=== PATIENT | female | born 1965 | race Caucasian/White ===

== ENCOUNTER 2016-04-19 10:55 | Emergency (ER) | payer OTHER ==
--- NOTE | 2016-04-19 11:49 | REP ---
Duplex extremity venous ultrasound: Left lower extremity. History: Left lower extremity pain. Findings: The deep veins are anechoic and fully compressible from the groin to the popliteal fossa in the left lower extremity. Color flow imaging is homogeneous. Spectral Doppler interrogation demonstrates intact respiratory variation in flow and normal manual augmentation of flow. There is no evidence of deep vein thrombosis. Impression: Negative left lower extremity duplex venous ultrasound. No evidence of deep vein thrombosis. Signed by Bernard Fraser MD 04/19/2016 11:40 A
[2016-04-19 11:59] LABS: BASO % 0.3 % (0.0-1.0); EOS # 0.2 K/mm3 (0.0-0.50); EOS % 2.9 % (0.0-3.0); LARGE UNSTAINED CELL # 0.1 K/mm3 (0.0-0.4); LARGE UNSTAINED CELL % 1.7 % (0.0-4.0); LYMPH # 2.2 K/mm3 (1.5-4.5); LYMPH % 30.5 % (24.0-44.0); MEAN CORPUSCULAR HEMOGLOBIN 30.7 pg (27.0-33.0); MONO # 0.5 K/mm3 (0.0-0.8); MONO % 6.7 % (0.0-5.0); NEUTROPHILS # 3.9 K/mm3 (1.8-7.7); NEUTROPHILS % 57.9 % (36.0-66.0); PLATELET COUNT, AUTOMATED 253 k/mm3 (150-450); RED CELL DISTRIBUTION WIDTH 13.1 % (11.5-14.5); WHITE BLOOD COUNT 6.7 K/mm3 (4.0-10.0)
[2016-04-19 12:17] LABS: ANION GAP 7 MEQ/L (8-16); BLOOD UREA NITROGEN 17 MG/DL (7-18); CALCIUM LEVEL 9.2 MG/DL (8.5-10.1); CARBON DIOXIDE LEVEL 28 MEQ/L (21-32); CHLORIDE LEVEL 108 MEQ/L (98-107); CREATININE FOR GFR 0.77 MG/DL (0.55-1.02); GLOMERULAR FILTRATION RATE > 60.0 (>51); GLUCOSE, FASTING 98 MG/DL (70-105); POTASSIUM SERUM 4.1 MEQ/L (3.5-5.1); SODIUM LEVEL 143 MEQ/L (136-145)
[2016-04-19 12:34] LABS: FREE T4 0.9 NG/DL (0.76-1.46)
--- NOTE | 2016-04-19 12:36 | EDDOCDS ---
Physician Documentation [facility] Name: Matty Graves Age: 50 yrs Sex: Female : 1965 Arrival Date: 04/19/2016 Time: 10:55 Bed PR Private MD: Gustabo Kingsley Disposition: 04/19/16 12:10 Discharged to Home/Self Care. Impression: Pain in left leg, Palpitations. - Condition is Stable. - Medication Reconciliation, Local Pharmacy Hours form. - Follow up: Private Physician; When: 2 - 3 days; Reason: Recheck today's complaints. Follow up: Emergency Department; When: As soon as possible; Reason: Worsening of conditions. - Problem is new. - Symptoms are unchanged. Historical: - Allergies: no known allergies; - Home Meds: 1. multivitamin Oral tab 1 tablet daily - PMHx: none; - PSHx: Carpal Tunnel Repair- Right; Cholecystectomy; Colonoscopy; - Social history: Smoking status: Patient states was never smoker of tobacco. No barriers to communication noted, The patient speaks fluent Kazakh, Speaks appropriately for age. - Family history: Not pertinent. - : The pt / caregiver states he / she is not on anticoagulants. Home medication list is obtained from the patient. - Exposure Risk Screening:: None identified. ABSTRACTER: 04/19 11:00 LMP N/A - Post-menopause srm Vital Signs: 10:56 BP 138 / 76; Pulse 71; Resp 20; Temp 98.9; Pulse Ox 98% ; Weight 91.63 kg / 202.01 lbs; jlf Height 5 ft. 3 in. (160.02 cm); Pain 0/10; 10:56 Body Mass Index 35.78 (91.63 kg, 160.02 cm) jlf MDM: 11:09 US Lower Extremity R/O DVT Ordered. EDMS 11:40 BMP Ordered. EDMS 11:40 CBC with Diff Ordered. EDMS 11:40 Financial registration complete. lg 11:46 ECG WITH READING ER PHYS+CARDIAG ordered. EDMS 11:56 [facility] Payment Agreement was scanned into [employer] and attached to record. lg 12:08 US Lower Extremity R/O DVT Reviewed. jk8 12:09 CBC with Diff Reviewed. jk8 12:12 TSH with Free T4 Ordered. EDMS 12:24 BMP Reviewed. jk8 Signatures: Dispatcher [employer] EDMS Joann Kirkpatrick, RN RN [facility] Norma Mahajan, John Reg lg Anabela MarinelliRN RN kr3 Christophe Garibay PA-C PA-C jk8 The chart was reviewed and I authenticate all verbal orders and agree with the evaluation and treatment provided.Corrections: (The following items were deleted from the chart) 12:09 12:08 No acute disease. jk8 jk8 12:12 11:36 CT ANGIO CHEST+CT ordered. EDMS EDMS Attachments: 11:56 [facility] Payment Agreement lg MTDD
--- NOTE | 2016-04-19 12:36 | EDDOCDS ---
Nurse's Notes [facility] Name: Matty Graves Age: 50 yrs Sex: Female : 1965 Arrival Date: 04/19/2016 Time: 10:55 Bed PR Private MD: Gustabo Kingsley Diagnosis: Pain in left leg;Palpitations Presentation: 04/19 10:58 Presenting complaint: Patient states: left calf pain for a month. felt flutters in her [facility] chest this am. symptoms lasted a couple of seconds. Adult Sepsis Screening: The patient does not have new or worsening altered mentation. Patient's respiratory rate is less than 22. Systolic blood pressure is greater than 100. Patient has a qSOFA score of 0- Negative Sepsis Screen. Suicide/Homicide risk assessment- the patient denies having any suicidal and/or homicidal ideations and does not present with any other emotional, behavioral or mental health complaints. Status: Patient is not a guest services officer or dependent. Transition of care: patient was not received from another setting of care. 10:58 Method Of Arrival: Walkin/Carried/Asstd [facility] 10:58 Acuity: ROLANDO Level 3 [facility] Triage Assessment: 11:00 General: Appears in no apparent distress, Behavior is appropriate for age, cooperative. [facility] Pain: Pain currently is 3 out of 10 on a pain scale. Quality of pain is described as aching. 11:00 Pt Declines HIV testing. [facility] PRESIDENT: 11:00 LMP N/A - Post-menopause srm Historical: - Allergies: no known allergies; - Home Meds: 1. multivitamin Oral tab 1 tablet daily - PMHx: none; - PSHx: Carpal Tunnel Repair- Right; Cholecystectomy; Colonoscopy; - Social history: Smoking status: Patient states was never smoker of tobacco. No barriers to communication noted, The patient speaks fluent Algerian, Speaks appropriately for age. - Family history: Not pertinent. - : The pt / caregiver states he / she is not on anticoagulants. Home medication list is obtained from the patient. - Exposure Risk Screening:: None identified. Screenin:34 Screening information is obtained from the patient. Fall risk: No risks identified. kr3 Assistance ADL's: requires no assistance with activities of daily living. Abuse/DV Screen: The patient / caregiver reports he/she is: not in a situation that causes fear, pain or injury. Nutritional screening: No deficits noted. Advance Directives: Currently, there is no health care proxy. home support is adequate. Assessment: 12:35 Reassessment: Patient appears in no apparent distress at this time. Pain: Denies pain. kr3 Neurological: Level of Consciousness is awake, alert. Respiratory: Respiratory effort is even, unlabored. Derm: Skin is normal. Vital Signs: 10:56 BP 138 / 76; Pulse 71; Resp 20; Temp 98.9; Pulse Ox 98% ; Weight 91.63 kg; Height 5 ft. jlf 3 in. (160.02 cm); Pain 0/10; 10:56 Body Mass Index 35.78 (91.63 kg, 160.02 cm) [facility] Vitals: 10:56 Log In Time: April 19, 2016 at 10:55. [facility] ED Course: 10:56 Patient visited by Isela Armando PCA. jlf 10:56 Gustabo Kingsley is Private Physician. jlf 10:56 Patient moved to Waiting jl 10:57 Patient visited by Isela Armando PCA. jlf 10:57 Patient moved to Pre RCE jlf 10:59 Triage Initiated srm 11:17 Patient moved to Ultrasound am17 11:27 Patient moved to Triage 1 jf3 11:33 Christophe Garibay PA-C is PHCP. jk8 11:33 Monse Crespo MD is Attending Physician. jk8 11:33 Patient visited by Christophe Garibay PA-C. jk8 11:50 Patient moved to PR2 / 26 kr3 11:50 CBC with Diff Sent. kr3 11:50 BMP Sent. kr3 11:56 [facility] Payment Agreement was scanned into [employer] and attached to record. lg 11:58 Patient visited by Monse Baker. sew 11:58 EKG done. (by ED staff). Reviewed by Christophe Garibay PA-C. sew 12:07 US Lower Extremity R/O DVT Returned. EDMS 12:34 The patient / caregiver is instructed regarding the plan of care and ED course. Patient kr3 has correct armband on for positive identification. 12:35 No IV's were initiated during this patient's visit. No procedures done that require kr3 assistance. Order Results: Lab Order: BMP; SPEC'M 04/19/16 11:49 Test: GLUCOSE, FASTING; Value: 98; Range: 70-105; Units: MG/DL; Status: F Test: BLOOD UREA NITROGEN; Value: 17; Range: 7-18; Units: MG/DL; Status: F Test: CREATININE FOR GFR; Value: 0.77; Range: 0.55-1.02; Units: MG/DL; Status: F Test: GLOMERULAR FILTRATION RATE; Value: > 60.0; Range: >51; Status: F Test: SODIUM LEVEL; Value: 143; Range: 136-145; Units: MEQ/L; Status: F Test: POTASSIUM SERUM; Value: 4.1; Range: 3.5-5.1; Units: MEQ/L; Status: F Test: CHLORIDE LEVEL; Value: 108; Range: 98-107; Abnormal: Above high normal; Units: MEQ/L; Status: F Test: CARBON DIOXIDE LEVEL; Value: 28; Range: 21-32; Units: MEQ/L; Status: F Test: ANION GAP; Value: 7; Range: 8-16; Abnormal: Below low normal; Units: MEQ/L; Status: F Test: CALCIUM LEVEL; Value: 9.2; Range: 8.5-10.1; Units: MG/DL; Status: F Test Note: ; Units are mL/min/1.73 m2 Chronic Kidney Disease Staging per NKF: Stage I & II GFR >=60 Normal to Mildly Decreased Stage III GFR 30-59 Moderately Decreased Stage IV GFR 15-29 Severely Decreased Stage V GFR <15 Very Little GFR Left ESRD GFR <15 on REGISTERED DIET TECHNICIAN Lab Order: CBC with Diff; SPEC'M 04/19/16 11:49 Test: WHITE BLOOD COUNT; Value: 6.7; Range: 4.0-10.0; Units: K/mm3; Status: F Test: RED BLOOD COUNT; Value: 4.32; Range: 4.00-5.40; Units: M/mm3; Status: F Test: HEMOGLOBIN; Value: 13.3; Range: 12.0-16.0; Units: g/dl; Status: F Test: HEMATOCRIT; Value: 40.2; Range: 36.0-47.0; Units: %; Status: F Test: MEAN CORPUSCULAR VOLUME; Value: 93.0; Range: 80.0-96.0; Units: fl; Status: F Test: MEAN CORPUSCULAR HEMOGLOBIN; Value: 30.7; Range: 27.0-33.0; Units: pg; Status: F Test: MEAN CORPUSCULAR HGB CONC; Value: 33.0; Range: 32.0-36.5; Units: g/dl; Status: F Test: RED CELL DISTRIBUTION WIDTH; Value: 13.1; Range: 11.5-14.5; Units: %; Status: F Test: PLATELET COUNT, AUTOMATED; Value: 253; Range: 150-450; Units: k/mm3; Status: F Test: NEUTROPHILS %; Value: 57.9; Range: 36.0-66.0; Units: %; Status: F Test: LYMPH %; Value: 30.5; Range: 24.0-44.0; Units: %; Status: F Test: MONO %; Value: 6.7; Range: 0.0-5.0; Abnormal: Above high normal; Units: %; Status: F Test: EOS %; Value: 2.9; Range: 0.0-3.0; Units: %; Status: F Test: BASO %; Value: 0.3; Range: 0.0-1.0; Units: %; Status: F Test: LARGE UNSTAINED CELL %; Value: 1.7; Range: 0.0-4.0; Units: %; Status: F Test: NEUTROPHILS #; Value: 3.9; Range: 1.8-7.7; Units: K/mm3; Status: F Test: LYMPH #; Value: 2.2; Range: 1.5-4.5; Units: K/mm3; Status: F Test: MONO #; Value: 0.5; Range: 0.0-0.8; Units: K/mm3; Status: F Test: EOS #; Value: 0.2; Range: 0.0-0.50; Units: K/mm3; Status: F Test: BASO #; Value: 0.0; Range: 0.0-0.2; Units: K/mm3; Status: F Test: LARGE UNSTAINED CELL #; Value: 0.1; Range: 0.0-0.4; Units: K/mm3; Status: F Radiology Order: US Lower Extremity R/O DVT Test: US Lower Extremity R/O DVT REASON FOR EXAMINATION: pain; Duplex extremity venous ultrasound: Left lower extremity.; ; History: Left lower extremity pain.; ; Findings: The deep veins are anechoic and fully compressible from the groin to; the popliteal fossa in the left lower extremity. Color flow imaging is; homogeneous. Spectral Doppler interrogation demonstrates intact respiratory; variation in flow and normal manual augmentation of flow. There is no evidence; of deep vein thrombosis.; ; Impression:; ; Negative left lower extremity duplex venous ultrasound. No evidence of deep vein; thrombosis.; ; ; Signed by; Bernard Fraser MD 04/19/2016 11:40 A; Outcome: 12:10 Discharge ordered by Provider. [email or web address] 12:35 Discharge Assessment: patient administered narcotics - no. The following High Risk kr3 Discharge criteria are identified: None. Discharged to home ambulatory. Condition: stable. Discharge instructions given to patient, Instructed on discharge instructions, follow up and referral plans. Demonstrated understanding of instructions, Pt was receptive of discharge instructions/ teaching. Ultrasound Study completed. Property sent home with patient. 12:36 Patient left the ED. kr3 Signatures: Dispatcher [employer] EDMS Joann Kirkpatrick, RN RN Norma Forbes, Anabela Merrill lg,RN RN kr3 Monse Baker Jordain, STEVAN PROFESSOR OF SPORT MANAGEMENT Leslie Juan am17 Christophe Garibay, PA-Benjamin PAGueroC jk8 Hussein Ohara,RN RN jf3 MTDD
--- NOTE | 2016-04-20 20:01 | ECGEPIP ---
Stationary ECG Study [facility] - ED Test Date: 2016-04-19 Pat Name: NICHOL SAWYER Department: Room: - Gender: F Director [facility]: [facility] : 1965 Requested By: WILLOW Suero PA-C Order Number: [id number] Reading MD: Monse Crespo Measurements Intervals Tye Rate: 66 P: 66 NE: 142 QRS: 72 QRSD: 94 T: 39 QT: 409 QTc: 428 Interpretive Statements SINUS RHYTHM NSTTW ABNORMALITY VS ARTIFACT NO PRIOR FOR COMPARISON Electronically Signed On 04-20-2016 20:00:54 EST by Monse Crespo
--- NOTE | 2016-04-21 13:36 | EDDOCDS ---
Physician Documentation [facility] Name: Matty Graves Age: 50 yrs Sex: Female : 1965 Arrival Date: 04/19/2016 Time: 10:55 Bed PR Private MD: Gustabo Kingsley Disposition: 04/19/16 12:10 Discharged to Home/Self Care. Impression: Pain in left leg, Palpitations. - Condition is Stable. - Medication Reconciliation, Local Pharmacy Hours form. - Follow up: Private Physician; When: 2 - 3 days; Reason: Recheck today's complaints. Follow up: Emergency Department; When: As soon as possible; Reason: Worsening of conditions. - Problem is new. - Symptoms are unchanged. Historical: - Allergies: no known allergies; - Home Meds: 1. multivitamin Oral tab 1 tablet daily - PMHx: none; - PSHx: Carpal Tunnel Repair- Right; Cholecystectomy; Colonoscopy; - Social history: Smoking status: Patient states was never smoker of tobacco. No barriers to communication noted, The patient speaks fluent Irish, Speaks appropriately for age. - Family history: Not pertinent. - : The pt / caregiver states he / she is not on anticoagulants. Home medication list is obtained from the patient. - Exposure Risk Screening:: None identified. DIRECTOR OF REHABILITATIVE SERVICES: 04/19 11:00 LMP N/A - Post-menopause srm Vital Signs: 10:56 BP 138 / 76; Pulse 71; Resp 20; Temp 98.9; Pulse Ox 98% ; Weight 91.63 kg / 202.01 lbs; jlf Height 5 ft. 3 in. (160.02 cm); Pain 0/10; 12:36 BP 137 / 86; Pulse 63; Resp 16; Temp 98.3(TE); Pulse Ox 99% on R/A; Pain 0/10; sew 10:56 Body Mass Index 35.78 (91.63 kg, 160.02 cm) jlf MDM: 11:09 US Lower Extremity R/O DVT Ordered. EDMS 11:40 BMP Ordered. EDMS 11:40 CBC with Diff Ordered. EDMS 11:40 Financial registration complete. lg 11:46 ECG WITH READING ER PHYS+CARDIAG ordered. EDMS 11:56 [facility] Payment Agreement was scanned into [employer] and attached to record. lg 12:08 US Lower Extremity R/O DVT Reviewed. jk8 12:09 CBC with Diff Reviewed. jk8 12:12 TSH with Free T4 Ordered. EDMS 12:24 BMP Reviewed. jk8 14:03 T-Sheet-- Draft Copy was scanned into [employer] and attached to record. klr 14:24 ECG/EKG was scanned into [employer] and attached to record. gb Signatures: Dispatcher [employer] EDMS Joann Kirkpatrick, RN SERINA [facility] Cate Baker, Reg Reg gb Norma Mahajan, Reg Reg lg Anabela Marinelli RN RN kr3 Christophe Garibay, PAGueroC PAKrishna jk8 Yeimi Kemp The chart was reviewed and I authenticate all verbal orders and agree with the evaluation and treatment provided.Corrections: (The following items were deleted from the chart) 12:09 12:08 No acute disease. jk8 jk8 12:12 11:36 CT ANGIO CHEST+CT ordered. EDMS EDMS Attachments: 11:56 [facility] Payment Agreement lg 14:03 T-Sheet-- Draft Copy klr 14:24 ECG/EKG gb Chart Complete MTDD
--- NOTE | 2016-04-21 13:36 | EDDOCDS ---
Nurse's Notes [facility] Name: Matty Graves Age: 50 yrs Sex: Female : 1965 Arrival Date: 04/19/2016 Time: 10:55 Bed PR Private MD: Gustabo Kingsley Diagnosis: Pain in left leg;Palpitations Presentation: 04/19 10:58 Presenting complaint: Patient states: left calf pain for a month. felt flutters in her [facility] chest this am. symptoms lasted a couple of seconds. Adult Sepsis Screening: The patient does not have new or worsening altered mentation. Patient's respiratory rate is less than 22. Systolic blood pressure is greater than 100. Patient has a qSOFA score of 0- Negative Sepsis Screen. Suicide/Homicide risk assessment- the patient denies having any suicidal and/or homicidal ideations and does not present with any other emotional, behavioral or mental health complaints. Status: Patient is not a service operations manager or dependent. Transition of care: patient was not received from another setting of care. 10:58 Method Of Arrival: Walkin/Carried/Asstd [facility] 10:58 Acuity: ROLANDO Level 3 [facility] Triage Assessment: 11:00 General: Appears in no apparent distress, Behavior is appropriate for age, cooperative. [facility] Pain: Pain currently is 3 out of 10 on a pain scale. Quality of pain is described as aching. 11:00 Pt Declines HIV testing. [facility] NURSING CLINICAL DIRECTOR: 11:00 LMP N/A - Post-menopause srm Historical: - Allergies: no known allergies; - Home Meds: 1. multivitamin Oral tab 1 tablet daily - PMHx: none; - PSHx: Carpal Tunnel Repair- Right; Cholecystectomy; Colonoscopy; - Social history: Smoking status: Patient states was never smoker of tobacco. No barriers to communication noted, The patient speaks fluent Somali, Speaks appropriately for age. - Family history: Not pertinent. - : The pt / caregiver states he / she is not on anticoagulants. Home medication list is obtained from the patient. - Exposure Risk Screening:: None identified. Screenin:34 Screening information is obtained from the patient. Fall risk: No risks identified. kr3 Assistance ADL's: requires no assistance with activities of daily living. Abuse/DV Screen: The patient / caregiver reports he/she is: not in a situation that causes fear, pain or injury. Nutritional screening: No deficits noted. Advance Directives: Currently, there is no health care proxy. home support is adequate. Assessment: 12:35 Reassessment: Patient appears in no apparent distress at this time. Pain: Denies pain. kr3 Neurological: Level of Consciousness is awake, alert. Respiratory: Respiratory effort is even, unlabored. Derm: Skin is normal. Vital Signs: 10:56 BP 138 / 76; Pulse 71; Resp 20; Temp 98.9; Pulse Ox 98% ; Weight 91.63 kg; Height 5 ft. jlf 3 in. (160.02 cm); Pain 0/10; 12:36 BP 137 / 86; Pulse 63; Resp 16; Temp 98.3(TE); Pulse Ox 99% on R/A; Pain 0/10; sew 10:56 Body Mass Index 35.78 (91.63 kg, 160.02 cm) [facility] Vitals: 10:56 Log In Time: April 19, 2016 at 10:55. [facility] ED Course: 10:56 Patient visited by Isela Armando PCA. jlf 10:56 Gustabo Kingsley is Private Physician. jlf 10:56 Patient moved to Waiting jlf 10:57 Patient visited by Isela Armando PCA. jlf 10:57 Patient moved to Pre RCE jlf 10:59 Triage Initiated srm 11:17 Patient moved to Ultrasound am17 11:27 Patient moved to Triage 1 jf3 11:33 hCristophe Garibay PA-C is PHCP. jk8 11:33 Monse Crespo MD is Attending Physician. jk8 11:33 Patient visited by Christophe Garibay PA-C. jk8 11:50 Patient moved to PR2 / 26 kr3 11:50 CBC with Diff Sent. kr3 11:50 BMP Sent. kr3 11:56 [facility] [place] [facility] Payment Agreement was scanned into [employer] and attached to record. lg 11:58 Patient visited by Monse Baker. sew 11:58 EKG done. (by ED staff). Reviewed by Christophe Garibay PA-C. sew 12:07 US Lower Extremity R/O DVT Returned. EDMS 12:34 The patient / caregiver is instructed regarding the plan of care and ED course. Patient blayne has correct armband on for positive identification. 12:35 No IV's were initiated during this patient's visit. No procedures done that require kr3 assistance. 12:40 Patient visited by Monse Baker. sew 14:03 T-Sheet-- Draft Copy was scanned into [employer] and attached to record. klr 14:24 ECG/EKG was scanned into [employer] and attached to record. gb 04/20 20:04 EKG-ADULT Returned. EDMS Order Results: Lab Order: BMP; SPEC'M 04/19/16 11:49 Test: GLUCOSE, FASTING; Value: 98; Range: 70-105; Units: MG/DL; Status: F Test: BLOOD UREA NITROGEN; Value: 17; Range: 7-18; Units: MG/DL; Status: F Test: CREATININE FOR GFR; Value: 0.77; Range: 0.55-1.02; Units: MG/DL; Status: F Test: GLOMERULAR FILTRATION RATE; Value: > 60.0; Range: >51; Status: F Test: SODIUM LEVEL; Value: 143; Range: 136-145; Units: MEQ/L; Status: F Test: POTASSIUM SERUM; Value: 4.1; Range: 3.5-5.1; Units: MEQ/L; Status: F Test: CHLORIDE LEVEL; Value: 108; Range: 98-107; Abnormal: Above high normal; Units: MEQ/L; Status: F Test: CARBON DIOXIDE LEVEL; Value: 28; Range: 21-32; Units: MEQ/L; Status: F Test: ANION GAP; Value: 7; Range: 8-16; Abnormal: Below low normal; Units: MEQ/L; Status: F Test: CALCIUM LEVEL; Value: 9.2; Range: 8.5-10.1; Units: MG/DL; Status: F Test Note: ; Units are mL/min/1.73 m2 Chronic Kidney Disease Staging per NKF: Stage I & II GFR >=60 Normal to Mildly Decreased Stage III GFR 30-59 Moderately Decreased Stage IV GFR 15-29 Severely Decreased Stage V GFR <15 Very Little GFR Left ESRD GFR <15 on ACCOUNT AUDITOR Lab Order: CBC with Diff; SPEC'M 04/19/16 11:49 Test: WHITE BLOOD COUNT; Value: 6.7; Range: 4.0-10.0; Units: K/mm3; Status: F Test: RED BLOOD COUNT; Value: 4.32; Range: 4.00-5.40; Units: M/mm3; Status: F Test: HEMOGLOBIN; Value: 13.3; Range: 12.0-16.0; Units: g/dl; Status: F Test: HEMATOCRIT; Value: 40.2; Range: 36.0-47.0; Units: %; Status: F Test: MEAN CORPUSCULAR VOLUME; Value: 93.0; Range: 80.0-96.0; Units: fl; Status: F Test: MEAN CORPUSCULAR HEMOGLOBIN; Value: 30.7; Range: 27.0-33.0; Units: pg; Status: F Test: MEAN CORPUSCULAR HGB CONC; Value: 33.0; Range: 32.0-36.5; Units: g/dl; Status: F Test: RED CELL DISTRIBUTION WIDTH; Value: 13.1; Range: 11.5-14.5; Units: %; Status: F Test: PLATELET COUNT, AUTOMATED; Value: 253; Range: 150-450; Units: k/mm3; Status: F Test: NEUTROPHILS %; Value: 57.9; Range: 36.0-66.0; Units: %; Status: F Test: LYMPH %; Value: 30.5; Range: 24.0-44.0; Units: %; Status: F Test: MONO %; Value: 6.7; Range: 0.0-5.0; Abnormal: Above high normal; Units: %; Status: F Test: EOS %; Value: 2.9; Range: 0.0-3.0; Units: %; Status: F Test: BASO %; Value: 0.3; Range: 0.0-1.0; Units: %; Status: F Test: LARGE UNSTAINED CELL %; Value: 1.7; Range: 0.0-4.0; Units: %; Status: F Test: NEUTROPHILS #; Value: 3.9; Range: 1.8-7.7; Units: K/mm3; Status: F Test: LYMPH #; Value: 2.2; Range: 1.5-4.5; Units: K/mm3; Status: F Test: MONO #; Value: 0.5; Range: 0.0-0.8; Units: K/mm3; Status: F Test: EOS #; Value: 0.2; Range: 0.0-0.50; Units: K/mm3; Status: F Test: BASO #; Value: 0.0; Range: 0.0-0.2; Units: K/mm3; Status: F Test: LARGE UNSTAINED CELL #; Value: 0.1; Range: 0.0-0.4; Units: K/mm3; Status: F Lab Order: TSH with Free T4; SPEC'M 04/19/16 11:49 Test: THYROID STIMULATING HORMONE; Value: 1.430; Range: 0.358-3.740; Units: uIU/ML; Status: F Test: FREE T4; Value: 0.90; Range: 0.76-1.46; Units: NG/DL; Status: F Radiology Order: US Lower Extremity R/O DVT Test: US Lower Extremity R/O DVT REASON FOR EXAMINATION: pain; Duplex extremity venous ultrasound: Left lower extremity.; ; History: Left lower extremity pain.; ; Findings: The deep veins are anechoic and fully compressible from the groin to; the popliteal fossa in the left lower extremity. Color flow imaging is; homogeneous. Spectral Doppler interrogation demonstrates intact respiratory; variation in flow and normal manual augmentation of flow. There is no evidence; of deep vein thrombosis.; ; Impression:; ; Negative left lower extremity duplex venous ultrasound. No evidence of deep vein; thrombosis.; ; ; Signed by; Bernard Fraser MD 04/19/2016 11:40 A; Radiology Order: EKG-ADULT Test: EKG-ADULT REASON FOR EXAMINATION: palpitations; Stationary ECG Study; [facility] - ED; ; Test Date: 2016-04-19; Pat Name: MATTY GRAVES Department:; Room: -; Gender: F Relationship Counselor: armando; : 1965 Requested By: CHRISTOPHE Suero PA-C; Order Number: [id number] Nicole MD: Monse Crespo; Measurements; Intervals [place]; Rate: 66 P: 66; LA: 142 QRS: 72; QRSD: 94 T: 39; QT: 409; QTc: 428; Interpretive Statements; SINUS RHYTHM; NSTTW ABNORMALITY VS ARTIFACT; NO PRIOR FOR COMPARISON; Electronically Signed On 04-20-2016 20:00:54 EST by Monse Crespo; Outcome: 04/19 12:10 Discharge ordered by Provider. jk8 12:35 Discharge Assessment: patient administered narcotics - no. The following High Risk kr3 Discharge criteria are identified: None. Discharged to home ambulatory. Condition: stable. Discharge instructions given to patient, Instructed on discharge instructions, follow up and referral plans. Demonstrated understanding of instructions, Pt was receptive of discharge instructions/ teaching. Ultrasound Study completed. Property sent home with patient. 12:36 Patient left the ED. kr3 Signatures: Dispatcher [employer] EDMS Joann Kirkpatrick, RN RN srm Cate Baker, Reg Reg gb Norma Mahajan, Reg Reg lg Anabela Marinelli,RN RN kr3 Monse Baker Jordain, RN REVIEW RN REVIEW Leslie Juan Joseph, PA-C PAKrishna jk8 Hussein Ohara,RN RN siria3 Yeimi Kemp Chart Complete YOSELIN
--- NOTE | 2016-04-21 13:36 | EDDOCDS ---
Physician Documentation [facility] Name: aMtty Graves Age: 50 yrs Sex: Female : 1965 Arrival Date: 04/19/2016 Time: 10:55 Bed PR Private MD: Gustabo Kingsley Disposition: 04/19/16 12:10 Discharged to Home/Self Care. Impression: Pain in left leg, Palpitations. - Condition is Stable. - Medication Reconciliation, Local Pharmacy Hours form. - Follow up: Private Physician; When: 2 - 3 days; Reason: Recheck today's complaints. Follow up: Emergency Department; When: As soon as possible; Reason: Worsening of conditions. - Problem is new. - Symptoms are unchanged. Historical: - Allergies: no known allergies; - Home Meds: 1. multivitamin Oral tab 1 tablet daily - PMHx: none; - PSHx: Carpal Tunnel Repair- Right; Cholecystectomy; Colonoscopy; - Social history: Smoking status: Patient states was never smoker of tobacco. No barriers to communication noted, The patient speaks fluent Ukrainian, Speaks appropriately for age. - Family history: Not pertinent. - : The pt / caregiver states he / she is not on anticoagulants. Home medication list is obtained from the patient. - Exposure Risk Screening:: None identified. DIRECTOR OF RECRUITING: 04/19 11:00 LMP N/A - Post-menopause srm Vital Signs: 10:56 BP 138 / 76; Pulse 71; Resp 20; Temp 98.9; Pulse Ox 98% ; Weight 91.63 kg / 202.01 lbs; jlf Height 5 ft. 3 in. (160.02 cm); Pain 0/10; 12:36 BP 137 / 86; Pulse 63; Resp 16; Temp 98.3(TE); Pulse Ox 99% on R/A; Pain 0/10; sew 10:56 Body Mass Index 35.78 (91.63 kg, 160.02 cm) jlf MDM: 11:09 US Lower Extremity R/O DVT Ordered. EDMS 11:40 BMP Ordered. EDMS 11:40 CBC with Diff Ordered. EDMS 11:40 Financial registration complete. lg 11:46 ECG WITH READING ER PHYS+CARDIAG ordered. EDMS 11:56 [facility] Payment Agreement was scanned into [employer] and attached to record. lg 12:08 US Lower Extremity R/O DVT Reviewed. jk8 12:09 CBC with Diff Reviewed. jk8 12:12 TSH with Free T4 Ordered. EDMS 12:24 BMP Reviewed. jk8 14:03 T-Sheet-- Draft Copy was scanned into [employer] and attached to record. klr 14:24 ECG/EKG was scanned into [employer] and attached to record. gb Signatures: Dispatcher [employer] EDMS Joann Kirkpatrick, RN SERINA [facility] Cate Baker, Reg Reg gb Norma Mahajan, Reg Reg lg Anabela Marinelli RN RN kr3 Christophe Garibay, PAGueroC PAKrishna jk8 Yeimi Kemp The chart was reviewed and I authenticate all verbal orders and agree with the evaluation and treatment provided.Corrections: (The following items were deleted from the chart) 12:09 12:08 No acute disease. jk8 jk8 12:12 11:36 CT ANGIO CHEST+CT ordered. EDMS EDMS Attachments: 11:56 [place] [place] Agreement lg 14:03 T-Sheet-- Draft Copy klr 14:24 ECG/EKG gb Chart Complete MTDD
== END 2016-04-19 12:36 | disposition home or self-care (01) ==
LOC: M ED 10:55
DX: R00.2 Palpitations (principal); M79.662 Pain in left lower leg

== ENCOUNTER → 2016-06-22 | Outpatient (CLI) | payer OTHER ==
--- NOTE | 2016-06-23 09:12 | REPMRS ---
Patient History The patient states she had a clinical breast exam in May 2016.Family history of breast cancer in mother at age 63, breast cancer in maternal aunt, and colorectal cancer in maternal grandmother at age 50 or over. Took hormonal contraceptives for 20 years. Digital Mammo Screening Bilat: June 22, 2016 - Exam #: [id number] Bilateral CC and MLO view(s) were taken. Technologist: Harika Mckinney, Technologist Prior study comparison: April 09, 2015, bilateral digital mammo screening bilat performed at [facility]. August 29, 2014, right breast digital mammo diagnostic unilateral performed at [facility]. FINDINGS: There are scattered fibroglandular densities. There has been no change in the appearance of the mammogram from the prior studies. There is a mild amount of residual fibroglandular tissue which is fairly symmetric. There is no interval development of dominant mass, architectural distortion, or clustered microcalcification suggestive of malignancy. ASSESSMENT: BI-RADS/ACR category 1 mammogram. Negative. Recommendation Routine screening mammogram in 1 year (for women over age 40). This mammogram was interpreted with the aid of an FDA-approved computer-aided dectection system. Electronically Signed By: Norm Zavala MD 06/23/16 0911
== END ==
LOC: M RAD 17:12
PROVIDERS: ATTEND Nurse Practitioner Women's Health
DX: Z12.31 Encounter for screening mammogram for malignant neoplasm of breast (principal)

== ENCOUNTER → 2017-04-11 | Outpatient (REF) | payer OTHER | LOC: M SFHCLERA 12:31 | DX: J02.9 Acute pharyngitis, unspecified (principal) ==

== ENCOUNTER 2017-05-09 18:18 | Emergency (ER) | payer OTHER ==
[2017-05-09] MEDS ORDERED: OXYCODONE/APAP 5MG/325MG(BULK FOR ED) 1 TABLET PO (21:15)
== END 2017-05-09 21:12 | disposition home or self-care (01) ==
LOC: M ED 18:18
DX: M76.02 Gluteal tendinitis, left hip (principal); W18.40XA Slipping, tripping and stumbling without falling, unspecified, initial encounter; Y92.9 Unspecified place or not applicable; Y93.9 Activity, unspecified
CPT/HCPCS: 73502

== ENCOUNTER → 2017-06-11 | Outpatient (REF) | payer OTHER | LOC: M SFHCWAGY 16:15 | DX: Z12.4 Encounter for screening for malignant neoplasm of cervix (principal) ==

== ENCOUNTER → 2017-07-26 | Outpatient (CLI) | payer OTHER | LOC: M RAD 17:44 | DX: Z12.31 Encounter for screening mammogram for malignant neoplasm of breast (principal) | CPT/HCPCS: 77067 ==

== ENCOUNTER → 2017-12-04 | Outpatient (CLI) | payer OTHER | LOC: M LRY 17:24 | DX: R05 Cough (principal) | CPT/HCPCS: 71046 ==

== ENCOUNTER → 2017-12-04 | Outpatient (REF) | payer OTHER | LOC: M SFHCLERA 17:40 | DX: J02.9 Acute pharyngitis, unspecified (principal) ==

== ENCOUNTER → 2018-12-01 | Outpatient (CLI) | payer OTHER ==
[~2018-12-01] MED LIST: IBUP-1022 PO; PERC5TAB12 PO
--- NOTE | 2018-12-01 18:19 | REPMRS ---
Patient History The patient states she had a clinical breast exam in June 2018.Family history of breast cancer at age 63 in mother, colorectal cancer at age 50 or over in maternal grandmother, breast cancer in maternal aunt. Took hormonal contraceptives for 20 years. 3D TOMOSYNTHESIS WAS PERFORMED. [facility] for [facility] 16.[facility]%. Digital Mammo Screening Bilat: December 01, 2018 - Exam #: [id number] Bilateral CC and MLO view(s) were taken. Technologist: Harika Mckinney, Technologist Prior study comparison: July 26, 2017, bilateral digital mammo screening bilat performed at [facility]. June 22, 2016, bilateral digital mammo screening bilat performed at [facility]. FINDINGS: There are scattered fibroglandular densities. There has been no change in the appearance of the mammogram from the prior studies. There is a mild amount of residual fibroglandular tissue which is fairly symmetric. There is no interval development of dominant mass, architectural distortion, or clustered microcalcification suggestive of malignancy. Assessment: BI-RADS/ACR category 1 mammogram. Negative Mammogram. Recommendation Routine screening mammogram in 1 year (for women over age 40). This mammogram was interpreted with the aid of an FDA-approved computer-aided dectection system. Electronically Signed By: Norm Zavala MD 12/01/18 0587
== END ==
LOC: M RAD 17:32
PROVIDERS: ATTEND Nurse Practitioner Women's Health
DX: Z12.31 Encounter for screening mammogram for malignant neoplasm of breast (principal)

== ENCOUNTER → 2019-12-25 | Outpatient (REF) | payer OTHER | LOC: M SFHCWAGY 16:58 | PROVIDERS: ATTEND Nurse Practitioner Women's Health | DX: Z12.4 Encounter for screening for malignant neoplasm of cervix (principal) ==

== ENCOUNTER → 2020-04-09 | Outpatient (CLI) | payer SELFPAY | LOC: M LABSMTC 09:41 | PROVIDERS: ATTEND Pediatrics | DX: Z20.822 Contact with and (suspected) exposure to COVID-19 (principal) ==

== ENCOUNTER → 2021-02-12 | Outpatient (CLI) | payer OTHER | LOC: M WHC 15:00 | PROVIDERS: ATTEND Nurse Practitioner Women's Health | DX: Z12.31 Encounter for screening mammogram for malignant neoplasm of breast (principal) ==

== ENCOUNTER → 2022-04-09 | Outpatient (CLI) | payer OTHER | LOC: M WHC 08:11 | PROVIDERS: ATTEND Nurse Practitioner Family | DX: Z12.31 Encounter for screening mammogram for malignant neoplasm of breast (principal) ==

== ENCOUNTER → 2022-04-09 | Outpatient (REF) | payer OTHER | LOC: M PLALAB 10:57 | PROVIDERS: ATTEND Nurse Practitioner Family | DX: Z12.4 Encounter for screening for malignant neoplasm of cervix (principal) | CPT/HCPCS: 87624; G0123 ==

== ENCOUNTER → 2022-04-09 | Outpatient (CLI) | payer OTHER | LOC: M PLALAB 09:47 | PROVIDERS: ATTEND Nurse Practitioner Family | DX: Z01.411 Encounter for gynecological examination (general) (routine) with abnormal findings (principal) ==

== ENCOUNTER → 2023-04-12 | Outpatient (CLI) | payer OTHER | LOC: M WHC 09:09 | PROVIDERS: ATTEND Nurse Practitioner Family | DX: Z12.31 Encounter for screening mammogram for malignant neoplasm of breast (principal) ==

== ENCOUNTER → 2023-08-15 | Outpatient (CLI) | payer OTHER ==
[2023-08-15 12:28] LABS: ALBUMIN 3.6 G/DL (3.2-5.2); ALKALINE PHOSPHATASE 72 U/L (46-116); ALT/SGPT 27 U/L (7.0-40); AST/SGOT 14 U/L (<34); BILIRUBIN,TOTAL 0.5 MG/DL (0.3-1.2); BLOOD UREA NITROGEN 16 MG/DL (9-23); CALCIUM LEVEL 9.1 MG/DL (8.5-10.1); CARBON DIOXIDE LEVEL 28 MMOL/L (20-31); CHLORIDE LEVEL 108 MMOL/L (98-107); CHOLESTEROL LEVEL 191 MG/DL (<200); CHOLESTEROL RISK RATIO 3.73 (<5); GLOMERULAR FILTRATION RATE > 60.0 (>51); GLUCOSE, FASTING 95 MG/DL (60-100); HDL CHOLESTEROL 51.2 MG/DL (>40); LDL CHOLESTEROL 122.2 MG/DL (<100); NON-HDL-C 139.8 MG/DL; POTASSIUM SERUM 4.3 MMOL/L (3.5-5.1); SODIUM LEVEL 141 MMOL/L (136-145); THYROID STIMULATING HORMONE 2.277 uIU/ML (0.55-4.78); TOTAL PROTEIN 6.8 G/DL (5.7-8.2); TRIGLYCERIDES LEVEL 88 MG/DL (<150)
== END ==
LOC: M LAB 11:38
PROVIDERS: ATTEND Family Medicine
DX: F43.23 Adjustment disorder with mixed anxiety and depressed mood (principal); E78.5 Hyperlipidemia, unspecified; R60.9 Edema, unspecified

== ENCOUNTER → 2023-09-21 | Outpatient (CLI) | payer OTHER | LOC: M WHC 08:57 | PROVIDERS: ATTEND Nurse Practitioner Family | DX: R92.312 Mammographic fatty tissue density, left breast (principal); S20.02XD Contusion of left breast, subsequent encounter; W19.XXXD Unspecified fall, subsequent encounter; Y92.9 Unspecified place or not applicable; Y93.9 Activity, unspecified; Y99.9 Unspecified external cause status | CPT/HCPCS: 77065; G0279 ==

== ENCOUNTER → 2024-02-06 | Outpatient (CLI) | payer OTHER ==
[2024-02-06 11:33] LABS: HEMATOCRIT 43.8 % (36.0-47.0); HEMOGLOBIN 14.2 g/dl (12.0-15.5); MEAN CORPUSCULAR HEMOGLOBIN 30.9 pg (27.0-33.0); MEAN CORPUSCULAR HGB CONC 32.4 g/dl (32.0-36.5); MEAN CORPUSCULAR VOLUME 95.4 fl (80.0-96.0); PLATELET COUNT, AUTOMATED 250 10^3/uL (150-450); RED BLOOD COUNT 4.59 10^6/uL (4.00-5.40); WHITE BLOOD COUNT 10.2 10^3/uL (4.0-10.0)
[2024-02-06 11:59] LABS: ALBUMIN 3.8 G/DL (3.2-5.2); ALKALINE PHOSPHATASE 79 U/L (35-104); ALT/SGPT 20 U/L (7.0-40); AST/SGOT 12 U/L (<34); BILIRUBIN,TOTAL 0.6 MG/DL (0.3-1.2); BLOOD UREA NITROGEN 13 MG/DL (9-23); CALCIUM LEVEL 9.6 MG/DL (8.5-10.1); CARBON DIOXIDE LEVEL 29 MMOL/L (20-31); CHLORIDE LEVEL 109 MMOL/L (98-107); CHOLESTEROL LEVEL 197 MG/DL (<200); CHOLESTEROL RISK RATIO 3.87 (<5); CREATININE FOR GFR 0.68 MG/DL (0.55-1.30); GLOMERULAR FILTRATION RATE > 60.0 (>51); GLUCOSE, FASTING 95 MG/DL (60-100); HDL CHOLESTEROL 50.8 MG/DL (>40); NON-HDL-C 146.2 MG/DL; POTASSIUM SERUM 4.5 MMOL/L (3.5-5.1); SODIUM LEVEL 143 MMOL/L (136-145); TOTAL PROTEIN 7.3 G/DL (5.7-8.2); TRIGLYCERIDES LEVEL 96 MG/DL (<150)
[2024-02-06 12:01] LABS: THYROID STIMULATING HORMONE 1.335 uIU/ML (0.55-4.78)
== END ==
LOC: M LAB 11:02
PROVIDERS: ATTEND Family Medicine
DX: E78.5 Hyperlipidemia, unspecified (principal)

== ENCOUNTER → 2024-09-19 | Outpatient (CLI) | payer OTHER ==
[2024-09-19 07:57] LABS: BASO # 0.1 10^3/uL (0.0-0.2); BASO % 0.5 % (0.0-1.0); EOS # 0.1 10^3/uL (0.0-0.5); EOS % 1.1 % (0.0-3.0); LYMPH # 2.9 10^3/uL (1.5-5.0); LYMPH % 31.4 % (24.0-44.0); MONO # 0.7 10^3/uL (0.0-0.8); MONO % 8.0 % (2.0-8.0); NEUTROPHILS # 5.4 10^3/uL (1.5-8.5); NEUTROPHILS % 58.8 % (36.0-66.0); PLATELET COUNT, AUTOMATED 235 10^3/uL (150-450)
[2024-09-19 08:29] LABS: ALT/SGPT 20 U/L (7.0-40); AST/SGOT 22 U/L (<34); CALCIUM LEVEL 9.8 MG/DL (8.3-10.6); CARBON DIOXIDE LEVEL 28 MMOL/L (20-31); CHLORIDE LEVEL 105 MMOL/L (98-107); CHOLESTEROL LEVEL 207 MG/DL (<200); CHOLESTEROL RISK RATIO 4.08 (<5); CREATININE FOR GFR 0.72 MG/DL (0.55-1.30); GLOMERULAR FILTRATION RATE > 90.0 (>45); LDL CHOLESTEROL 131.3 MG/DL (<100); NON-HDL-C 156.3 MG/DL; POTASSIUM SERUM 4.6 MMOL/L (3.5-5.1); SODIUM LEVEL 143 MMOL/L (136-145); TRIGLYCERIDES LEVEL 125 MG/DL (<150)
== END ==
LOC: M LAB 07:19
PROVIDERS: ATTEND Family Medicine
DX: E78.5 Hyperlipidemia, unspecified (principal)

== ENCOUNTER → 2024-09-19 | Outpatient (REF) | payer OTHER | LOC: M LAB REF 15:41 | PROVIDERS: ATTEND Family Medicine | DX: Z00.00 Encounter for general adult medical examination without abnormal findings (principal) ==

== ENCOUNTER → 2024-11-02 | Outpatient (CLI) | payer OTHER | LOC: M WHC 08:35 | PROVIDERS: ATTEND Nurse Practitioner Family | DX: Z12.31 Encounter for screening mammogram for malignant neoplasm of breast (principal); R92.313 Mammographic fatty tissue density, bilateral breasts ==

== ENCOUNTER → 2025-01-22 | Outpatient (CLI) | payer OTHER ==
[~2025-01-22] MED LIST changes: -IBUP-1022 PO; +IBUP600T42 PO
== END ==
LOC: M SLEEP 20:00
PROVIDERS: ATTEND Physician Assistant
DX: R40.0 Somnolence (principal); R06.83 Snoring